=== PATIENT | female | born 1995 | race Caucasian/White ===

== ENCOUNTER 2019-06-09 12:06 | Emergency (ER) | payer OTHER ==
[~2019-06-09] VITALS: Ht 165.1 cm; Wt 65.8 kg
--- NOTE | 2019-06-09 12:09 | NUR ---
PT BIB [facility] TO ER BED 12
[2019-06-09 12:13] VITALS: BP 112/69
--- NOTE | 2019-06-09 12:16 | NUR ---
ACCUCHECK 112 AT TRIAGE.
--- NOTE | 2019-06-09 12:21 | NUR ---
PT STATES N/V THROUGH LAST WEEK. HAS BEEN DRINKING EXCESSIVELY X 2 WEEKS
--- NOTE | 2019-06-09 12:21 | NUR ---
BIBA FOR DRUG AND ALCOHOL ABUSE, REPORTS SHE DRANK 750 ML OF VODKA TODAY AT 4 AM; AND DID ECSTACY, ADDERALL, AND MUSHROOMS 2 DAYS AGO. STATES FEELS SHAKY, DIZZY, MID UPPER CHEST PRESSURE WHICH ARE ALL SYMPTOMS SHE HAS EXPERIENCED IN THE PAST WITH DRINKING ETOH. DENIES PAIN. CONNECTED TO BEDSIDE MONITOR. PMH- DENIES
--- NOTE | 2019-06-09 12:26 | NUR ---
NO N/V NOTED. PT NOW SLEEPING COMFORTABLY IN [facility].
[2019-06-09] MEDS ORDERED: NACL 0.9% 1,000 ML IV ONE (12:40)
--- NOTE | 2019-06-09 13:01 | NUR ---
LABS DRAWN BEDSIDE AND PICKED UP BY DISTRICT SUPERVISOR
--- NOTE | 2019-06-09 13:01 | NUR ---
DR SOUTH EVALUATING PT AT BEDSIDE
[2019-06-09] MEDS ORDERED: ONDANSETRON 4 MG/2 ML VIAL IVP ONE (13:05)
[2019-06-09] MEDS ORDERED: LORazepam 2 MG/ML VIAL IVP ONE (13:05)
--- NOTE | 2019-06-09 13:21 | NUR ---
PT AMB TO BATHROOM TO PROVIDE URINE SAMPLE
[2019-06-09 13:34] LABS: BASOPHILS % (AUTO) 0.5 % (0.0-2.0); EOSINOPHILS % (AUTO) 0.1 % (0.0-4.0); HEMATOCRIT 37.3 % (36-48); HEMOGLOBIN 12.7 g/dL (12.0-16.0); LYMPHOCYTES # (AUTO) 1.4 K/uL (2.5-16.5); MEAN CORPUSCULAR HEMOGLOBIN 30 pg (27-31); MEAN CORPUSCULAR HGB CONC 34 g/dL (33-37); MEAN CORPUSCULAR VOLUME 89.4 fL (80-94); MONOCYTES # (AUTO) 0.3 K/uL (0.8-1.0); MONOCYTES % (AUTO) 5.6 % (1.7-9.3); NEUTROPHILS # (AUTO) 3.2 K/uL (1.8-7.7); NEUTROPHILS % (AUTO) 64.8 % (42.2-75.2); PLATELET COUNT (AUTO) 236 K/uL (140-450); RED BLOOD CELL COUNT(AUTO) 4.17 MIL/uL (4.20-5.40)
--- NOTE | 2019-06-09 13:38 | NUR ---
RT AT BEDSIDE FOR EKG
[2019-06-09 14:21] LABS: ALBUMIN 3.4 g/dL (3.4-5.0); ANION GAP 16.1 (8-16); ASPARTATE AMINOTRANSFERASE 79 U/L (15-37); CARBON DIOXIDE 25.4 mmol/L (21-32); CHLORIDE 98 mmol/L (98-107); CREATININE 0.8 mg/dL (0.6-1.3); GFR ARICAN-AMERICAN 112 mL/min (>90); GLUCOSE 96 mg/dL (74-106); POTASSIUM 3.5 mmol/L (3.5-5.1); SODIUM SERUM 136 mmol/L (136-145); TOTAL BILIRUBIN 1.2 mg/dL (0.0-1.0); UREA NITROGEN, BLOOD 10 mg/dL (7-18)
[2019-06-09 14:24] LABS: ACETAMINOPHEN < 0.5 ug/ml (10-30); SALICYLATE < 2.8 mg/dL (2.8-20.0)
[2019-06-09 14:57] LABS: BARBITURATE, URINE NEGATIVE ng/ml (NEG <=200); BENZODIAZEPINE, URINE NEGATIVE ng/mL (NEG <=200); CANNABINOID, URINE NEGATIVE ng/mL (NEG <=50); COCAINE, URINE NEGATIVE ng/mL (NEG <=300); OPIATE, URINE NEGATIVE ng/mL (NEG <=2000); PHENCYCLIDINE SCREEN,URINE NEGATIVE ng/mL (NEG <=25)
[2019-06-09 15:46] VITALS: BP 117/76
== END 2019-06-09 15:45 | disposition home or self-care (01) ==
LOC: MED 12:06
DX: F19.10 Other psychoactive substance abuse, uncomplicated (principal); F10.239 Alcohol dependence with withdrawal, unspecified; F17.210 Nicotine dependence, cigarettes, uncomplicated; F15.90 Other stimulant use, unspecified, uncomplicated
CPT/HCPCS: 36415; 36600; 80053; 80305; 81025; 82803; 85025; 96361; 96374; 96375; 99284; G0480; G0482; J2060; J2405; J7030